=== PATIENT | male | born 1990 | race Caucasian/White ===

== ENCOUNTER 2018-07-21 19:44 | Emergency (ER) | payer OTHER ==
[2018-07-21] MEDS ORDERED: LIDOCAINE 5% (700 MG) TRANSDERMAL ADH..PATCH TP ONE (23:11)
[2018-07-21] MEDS ORDERED: ACETAMINOPHEN 325 MG TABLET PO ONE (23:11)
[2018-07-21] MEDS ORDERED: KETOROLAC TROMETHAMINE 60 MG/2 ML SDV IM ONE (23:11)
--- NOTE | 2018-07-21 23:15 | ER Document Report ---
ED General - General Chief Complaint: Back Pain Stated Complaint: BACK PAIN Time Seen by Provider: 07/21/18 22:20 Notes: Patient is a 28-year-old male without chronic medical problems who presents with approximately 8 hours of progressively worsening right low back pain. Patient states that this started gradually after he was lifting wood while working at [employer]. He states that he felt like he strained his back the pain got progressively worse thereafter. Does describe it as a dull, throbbing, constant pain worsened by movement or bending. He has not trying to improve the pain. Was seen in urgent care, referred to the emergency department for need of possible x-rays. Patient denies any bowel or bladder incontinence, urinary bleeding fever or IV drug use. No history of similar injuries in the past. TRAVEL OUTSIDE OF THE [place] IN LAST 30 DAYS: No Past Medical History - General Information source: Patient - Social History Smoking Status: Never Smoker Frequency of alcohol use: Occasional Drug Abuse: None Family History: Reviewed & Not Pertinent Patient has suicidal ideation: No Patient has homicidal ideation: No Renal/ Medical History: Denies: Hx Peritoneal Dialysis Review of Systems - Review of Systems Notes: Constitutional: Negative for fever. HENT: Negative for sore throat. Eyes: Negative for visual changes. Cardiovascular: Negative for chest pain. Respiratory: Negative for shortness of breath. Gastrointestinal: Negative for abdominal pain, vomiting or diarrhea. Genitourinary: Negative for dysuria. Musculoskeletal: Positive for right low back pain Skin: Negative for rash. Neurological: Negative for headaches, weakness or numbness. 10 point ROS negative except as marked above and in HPI. Physical Exam - Vital signs Vitals: Temp Pulse Resp BP Pulse Ox 98.8 F 94 16 116/67 96 07/21/18 20:18 07/21/18 20:18 07/21/18 20:18 07/21/18 20:18 07/21/18 20:18 Interpretation: Normal Notes: PHYSICAL EXAMINATION: GENERAL: Well-appearing, well-nourished and in no acute distress. HEAD: Atraumatic, normocephalic. EYES: Pupils equal round and reactive to light, extraocular movements intact, sclera anicteric, conjunctiva are normal. ENT: nares patent, oropharynx clear without exudates. Moist mucous membranes. NECK: Normal range of motion, supple without lymphadenopathy LUNGS: Breath sounds clear to auscultation bilaterally and equal. No wheezes rales or rhonchi. HEART: Regular rate and rhythm without murmurs ABDOMEN: Soft, nontender, normoactive bowel sounds. No guarding, no rebound. No masses appreciated. EXTREMITIES: Normal range of motion, no pitting or edema. No cyanosis. Back: No midline spinal tenderness, step-offs or deformities NEUROLOGICAL: 5 out of 5 strength both distally and proximally bilateral lower extremities. 2+ patellar reflexes bilaterally. No clonus. Sensation grossly intact in the bilateral lower extremities. Patient is able to ambulate without difficulty. PSYCH: Normal mood, normal affect. SKIN: Warm, Dry, normal turgor, no rashes or lesions noted. Course - Re-evaluation Re-evalutation: 07/21/18 23:11 Presentation of a well appearing patient complaining of acute back pain that started several hours after lifting heavy at work. No rapid progression of symptoms, systemic symptoms including fevers, chills, weight loss, history of recent bacterial infection, bilateral symptoms, numbness, weakness, difficulty walking, urinary retention or bowel incontinence, personal history of cancer, immunosuppression, diabetes, known AAA, or history of IV drug use. Exam is without point tenderness over vertebral bodies, pulsatile abdominal mass, and patient has symmetric and intact lower extremity strength, sensation, and reflexes without clonus. 2+ symmetric medial malleolar and dorsalis pedis pulses Based on history and physical, I have a very low suspicion of a concerning etiology of pain including epidural compression syndrome, spinal infection, transverse myelitis, malignancy, abdominal aortic aneurysm, renal colic, acute lower extremity claudication, neurogenic claudication, ankylosing spondylitis, or other intra-abdominal process. Due to absence of concerning risk factors in history and physical as well as absence of rapidly progressive, severe, or bilateral symptoms, will defer imaging at this point. Plan to manage conservatively with outpatient analgesia, analgesia, and physical therapy. - Acetaminophen 650 q 4 + ibuprofen 600 q 6 - Continue normal daily activities as tolerated by pain - Provide with standard musculoskeletal back pain exercise instructions - Instruct to follow up with primary care provider if symptoms not improving - Provide careful return precautions and concerning symptoms to watch for. - Vital Signs Vital signs: Temp Pulse Resp BP Pulse Ox 98.6 F 74 18 123/70 98 07/21/18 23:24 07/21/18 23:24 07/21/18 23:24 07/21/18 23:24 07/21/18 23:24 Discharge - Discharge Clinical Impression: Musculoskeletal strain Low back pain Qualifiers: Chronicity: acute Back pain laterality: right Sciatica presence: without sciati ca Qualified Code(s): M54.5 - Low back pain Condition: Good Disposition: HOME, SELF-CARE Additional Instructions: You have been seen in the Emergency Department (ED) today for back pain. Your workup and exam have not shown any acute abnormalities and you are likely suffering from muscle strain or possible problems with your discs, but there is no treatment that will fix your symptoms at this time. Please take the naproxen that has been prescribed as directed. You should also purchase a local lidocaine cream such as "aspercreme with lidocaine" and use per bottle instructions to the affected area. Apply heat to the area as often as you are able. Continue to keep active and avoid prolonged periods of bed rest. Please follow up with your doctor as soon as possible regarding today's ED visit and your back pain. Return to the ED for worsening back pain, fever, weakness or numbness of either leg, or if you develop either (1) an inability to urinate or have bowel movements, or (2) loss of your ability to control your bathroom functions (if you start having "accidents"), or if you develop other new symptoms that concern you.concern you. Prescriptions: Cyclobenzaprine HCl [Flexeril 10 mg Tablet] 10 mg PO QHS PRN #15 tablet PRN Reason: Naproxen 500 mg PO BID PRN #14 tablet PRN Reason: Forms: Special Work Note, Return to Work
[2018-07-21 23:25] VITALS: BP 123/70
== END 2018-07-21 23:25 | disposition home or self-care (01) ==
LOC: ER 19:44
DX: S39.012A Strain of muscle, fascia and tendon of lower back, initial encounter (principal); M54.9 Dorsalgia, unspecified; X50.9XXA Other and unspecified overexertion or strenuous movements or postures, initial encounter
CPT/HCPCS: 99283; 96372; J1885

== ENCOUNTER 2018-08-03 11:17 | Emergency (ER) | payer OTHER ==
--- NOTE | 2018-08-03 13:12 | ER Document Report ---
HPI - HPI Patient complains to provider of: back pain Time Seen by Provider: 08/03/18 12:33 Onset: Other - 07/21/18 Onset/Duration: Persistent Quality of pain: Achy, Throbbing Severity: Severe Pain Level: 5 Context: Patient presents to the emergency department with complaints of low back pain. Patient reports on July 21 he was working at [employer] when he lifted some plywood and hurt his back. He was evaluated in the emergency department and instructed to follow-up with his primary care provider. He reports he has [facility] He reports they sent him up for x-rays but they told him to come here for an MRI. He denies urinary or bowel incontinence or retention. He reports he feels numbness behind his knees now. Denies weakness. Denies further trauma. Complaints of fever vomiting diarrhea. He reports that urgent care gave him a work note for light duty. He reports that even working light duty his back hurts. He reports after standing/sitting in one hour he will hurt. Associated Symptoms: None Exacerbated by: Denies Relieved by: Denies Similar symptoms previously: Yes Recently seen / treated by doctor: Yes - REPRODUCTIVE Reproductive: DENIES: : Past Medical History - General Information source: Patient - Social History Smoking Status: Current Every Day Smoker Cigarette use (# per day): Yes Chew tobacco use (# tins/day): No Frequency of alcohol use: Occasional Drug Abuse: None Occupation: [employer] Family History: Reviewed & Not Pertinent Patient has suicidal ideation: No Patient has homicidal ideation: No - Medical History Medical History: Negative Renal/ Medical History: Denies: Hx Peritoneal Dialysis Surgical Hx: Negative Vertical Provider Document - CONSTITUTIONAL Agree With Documented VS: Yes Exam Limitations: No Limitations General Appearance: WD/WN, No Apparent Distress - INFECTION CONTROL TRAVEL OUTSIDE OF THE [place] IN LAST 30 DAYS: No - HEENT HEENT: Atraumatic, Normocephalic - NECK Neck: Supple - RESPIRATORY Respiratory: No Respiratory Distress - CARDIOVASCULAR Cardiovascular: Regular Rate - GI/ABDOMEN Gastrointestinal: Abdomen Non-Tender - BACK Back: Normal Inspection - No obvious deformity no erythema swelling or warmth. Good distal movement and sensation no vertebral tenderness. patient complains of low bilateral back pain reports numbness behind knees. Ambulates without problems stands up and toes rolled back on heels without problems no weakness noted. negative: CVA Tenderness-Right, CVA Tenderness-Left - MUSCULOSKELETAL/EXTREMETIES Musculoskeletal/Extremeties: MAEW, FROM, Non-Tender - NEURO Level of Consciousness: Awake, Alert, Appropriate Motor/Sensory: No Motor Deficit - DERM Integumentary: Warm, Dry Course - Re-evaluation Re-evalutation: 08/03/18 We discussed plan of care with patient. He is to continue taking his muscle relaxer and an anti-inflammatory such as naproxen. He has an appointment with his primary care provider August 10. He will remain off work until that time for further evaluation. He was instructed on the red flags of back pain such as fever or increased pain urinary or bowel incontinence to return to the emergency department. He verbalized understanding to all instructions. An MRI was not done at this time due to no further trauma same symptoms since July 21. No urinary or bowel incontinence or retention. Dictation of this chart was performed using voice recognition software; therefore, there may be some unintended grammatical errors. Discharge - Discharge Clinical Impression: Back pain Qualifiers: Back pain location: low back pain Chronicity: unspecified Back pain laterality: bilateral Sciatica presence: unspecified whether sciatica present Qualified Code(s): M54.5 - Low back pain Condition: Stable Disposition: HOME, SELF-CARE Instructions: Ice Packs ([facility]), Low Back Pain ([facility]), Warm Packs ([facility]) Additional Instructions: *You have been evaluated for back pain *Take your medication as prescribed *take ibuprofen as indicated *Rest/Ice- heat as directed *Follow up with your primary care provider august 10 as scheduled *Return to ED for worsening condition, changes, needs Forms: Return to Work
[2018-08-03 13:23] VITALS: BP 123/80
== END 2018-08-03 13:23 | disposition home or self-care (01) ==
LOC: ER 11:17
DX: M54.5 Low back pain (principal); X50.0XXA Overexertion from strenuous movement or load, initial encounter; Y92.512 Supermarket, store or market as the place of occurrence of the external cause; Y99.0 Civilian activity done for income or pay; R20.0 Anesthesia of skin; F17.210 Nicotine dependence, cigarettes, uncomplicated
CPT/HCPCS: 99283

== ENCOUNTER 2020-06-30 16:57 | Emergency (ER) | payer OTHER ==
[2020-06-30] MEDS ORDERED: NORMAL SALINE 1000 ML 1,000 ML IV ONE (18:09)
--- NOTE | 2020-06-30 18:13 | ER Document Report ---
ED Medical Screen (RME) - General Chief Complaint: Inability to Void Stated Complaint: VOMITING, SORE THROAT Time Seen by Provider: 06/30/20 18:03 TRAVEL OUTSIDE OF THE [place] IN LAST 30 DAYS: No - HPI Notes: 06/30/20 18:11 29-year-old male presents to the emergency room today for evaluation of nausea vomiting, dizziness that has become progressively worse with a sore throat since 6 days ago. He saw his PCP on they told him he had tonsillitis, he was prescribed an antibiotic and steroid. He states today he has been vomiting nonstop, his primary care doctor called him in [facility] which did not help him at all. He was advised to come to the emergency room. Reports he has not urinated since 11 PM last night, has not been eating, every time he drinks he vomits. Reports his last bowel movement was yesterday. Denies any fevers chills, chest pain shortness of breath, headache congestion. Patient still states he is having a sore throat, does not feel like the antibiotic is helping. Denies any fevers or chills. Patient does have a low-grade fever in triage I have greeted and performed a rapid initial assessment of this patient. A comprehensive ED assessment and evaluation of the patient, analysis of test results and completion of the medical decision making process will be conducted by additional ED providers. PHYSICAL EXAMINATION: GENERAL: Well-appearing, well-nourished and in no acute distress. HEAD: Atraumatic, normocephalic. ENT: Bilateral tonsils enlarged +2, with erythema and exudate EYES: Pupils equal round extraocular movements intact, conjunctiva are normal. NECK: Normal range of motion CV: s1, s2 regular LUNGS: No respiratory distress abd: slight RUQ abd pain, negative mathtew's sign. no cva tenderness bilaterally Musculoskeletal: Normal range of motion NEUROLOGICAL: Normal speech, normal gait. SKIN: Warm, Dry, normal turgor, no rashes or lesions noted. - Related Data Allergies/Adverse Reactions: No Known Allergies Allergy (Verified 06/30/20 17:58) Past Medical History Renal/ Medical History: Denies: Hx Peritoneal Dialysis Physical Exam - Vital signs Vitals: Temp Pulse Resp BP Pulse Ox 99.0 F 99 20 135/85 H 99 06/30/20 17:19 06/30/20 17:19 12/08/20 17:19 06/30/20 17:19 06/30/20 17:19 Course - Vital Signs Vital signs: Temp Pulse Resp BP Pulse Ox 99.0 F 99 20 135/85 H 99 06/30/20 17:19 06/30/20 17:19 06/30/20 17:19 06/30/20 17:19 06/30/20 17:19
--- NOTE | 2020-06-30 18:54 | RADIOLOGY REPORT (SQ) ---
EXAM DESCRIPTION: U/S ABDOMEN LIMITED W/O DOP IMAGES COMPLETED DATE/TIME: 06/30/2020 6:43 pm REASON FOR STUDY: vomiting and nausea COMPARISON: None. TECHNIQUE: Dynamic and static grayscale images acquired of the abdomen and recorded on PACS. Adano sacha selected color Doppler and spectral images recorded. LIMITATIONS: None. FINDINGS: PANCREAS: The pancreas is of normal echogenicity. The body and tail are obscured by over lying bowel gas. LIVER: The liver measures 17.2 cm in length, within the upper limits of normal for size. No masses. Echotexture normal. LIVER VASCULATURE: Normal directional flow of the main portal vein and hepatic veins. GALLBLADDER: No stones. The gallbladder wall measures 2.0 mm, normal wall thickness. No pericholecys tic fluid. ULTRASOUND-DETECTED SEBASTIAN'S SIGN: Negative. INTRAHEPATIC DUCTS AND COMMON DUCT: CBD measures 3.0 mm in diameter, normal. The intrahepatic ducts normal caliber. No filling defects. INFERIOR VENA CAVA: Normal flow. AORTA: No aneurysm. RIGHT KIDNEY: The right kidney measures 9.7 cm in length, normal size. Normal echogenicity. No solid or suspicious masses. No hydronephrosis. No calcifications. PERITONEAL AND RIGHT PLEURAL SPACE: No ascites or effusions. OTHER: No other significant findings. IMPRESSION: 1. The body and tail the pancreas are obscured by overlying bowel gas. 2. Examination is otherwise unremarkable sonographically. TECHNICAL DOCUMENTATION: JOB ID: [id number] 2010 [employer]- All Rights Reserved Reading location - IP/workstation name: [id number]
[2020-06-30 19:33] LABS: ABSOLUTE LYMPHOCYTES (AUTO) 2.7 10^3/uL (0.5-4.7); ABSOLUTE MONOCYTES (AUTO) 0.9 10^3/uL (0.1-1.4); ABSOLUTE NEUT (AUTO) 5.8 10^3/uL (1.7-8.2); BASOPHILS % (AUTO) 0.3 % (0-2); EOSINOPHILS % (AUTO) 0.4 % (0-6); HEMATOCRIT 44.8 % (37.9-51.0); HEMOGLOBIN 15.5 g/dL (13.5-17.0); LYMPHOCYTES % (AUTO) 28.7 % (13-45); MEAN CORPUSCULAR HGB CONC 34.6 g/dL (32.0-36.0); MEAN CORPUSCULAR VOLUME 90 fl (80-97); MONOCYTES % (AUTO) 9.2 % (3-13); PLATELET COUNT 243 10^3/uL (150-450); RED CELL DISTRIBUTION WIDTH 12.4 % (11.5-14.0); SEGMENTED NEUTROPHILS % (AUTO) 61.4 % (42-78); TOTAL CELLS COUNTED % (AUTO) 100 %; WHITE BLOOD COUNT 9.5 10^3/uL (4.0-10.5)
[2020-06-30 19:42] LABS: APPEARANCE,URINE SLIGHTLY-CLOUDY; BILIRUBIN,URINE NEGATIVE (NEGATIVE); COLOR,URINE AMBER; GLUCOSE, URINE NEGATIVE (NEGATIVE); KETONES,URINE 20 mg/dL (NEGATIVE); LEUKOCYTE ESTERASE,URINE NEGATIVE (NEGATIVE); NITRITE,URINE NEGATIVE (NEGATIVE); PROTEIN,URINE 30 mg/dL (NEGATIVE); URINE SPECIFIC GRAVITY 1.027; UROBILINOGEN,URINE NEGATIVE mg/dL (<2.0)
[2020-06-30 19:53] LABS: ALBUMIN 4.6 g/dL (3.5-5.0); ALKALINE PHOSPHATASE 67 U/L (38-126); ANION GAP 10 (5-19); ASPARTATE AMINO TRANSFERASE 22 U/L (17-59); BILIRUBIN,DIRECT 0.1 mg/dL (0.0-0.4); BILIRUBIN,TOTAL 0.6 mg/dL (0.2-1.3); BLOOD UREA NITROGEN 15 mg/dL (7-20); CALCIUM 9.9 mg/dL (8.4-10.2); CARBON DIOXIDE 28 mmol/L (22-30); CHLORIDE 102 mmol/L (98-107); GLUCOSE 101 mg/dL (75-110); POTASSIUM 4.3 mmol/L (3.6-5.0); TOTAL PROTEIN 7.8 g/dL (6.3-8.2)
--- NOTE | 2020-06-30 21:57 | ER Document Report ---
ED General - General Chief Complaint: Inability to Void Stated Complaint: VOMITING, SORE THROAT Time Seen by Provider: 06/30/20 18:03 Mode of Arrival: Ambulatory Information source: Patient Notes: [id number] male presents to the emergency department with a history of pain by his primary doctor for tonsillitis and given antibiotics and steroids. He has since then developed nausea, vomiting, dizziness and diffuse muscle aches and pains. He also notes that he has felt very weak and has not been having normal urine output. He was given IV fluids and medication for nausea and now feels improved. Patient was noted to have a low-grade temp at 99 point presented. He has been made a person of interest and a coronavirus swab was collected in the emergency department. He describes occasional coughing which is nonproductive. He denies shortness of breath. TRAVEL OUTSIDE OF THE [place] IN LAST 30 DAYS: No - Related Data Allergies/Adverse Reactions: No Known Allergies Allergy (Verified 06/30/20 17:58) Past Medical History - Social History Smoking Status: Current Every Day Smoker Family History: Reviewed & Not Pertinent Renal/ Medical History: Denies: Hx Peritoneal Dialysis Review of Systems - Review of Systems Notes: Constitutional: Negative for fever. HENT: See HPI. Eyes: Negative for visual changes. Cardiovascular: Negative for chest pain. Respiratory: Negative for shortness of breath. Gastrointestinal: See HPI Genitourinary: Negative for dysuria. Musculoskeletal: Negative for back pain. Skin: Negative for rash. Neurological: Negative for headaches, weakness or numbness. 10 point ROS negative except as marked above and in HPI. Physical Exam - Vital signs Vitals: Temp Pulse Resp BP Pulse Ox 99.0 F 99 20 135/85 H 99 06/30/20 17:19 06/30/20 17:19 06/30/20 17:19 06/30/20 17:19 06/30/20 17:19 - Notes Notes: PHYSICAL EXAMINATION: Physical Exam: General: Well-nourished well-developed 29-year-old man in no acute distress HEENT: NC/AT, pupils equal round and reactive to light, MM moist,nares clear, oropharynx clear, airway patent Neck: supple, no adenopathy, no masses. Good range of motion Lungs: clear, no wheezing, no rales no rhonchi CVS: Regular rate and rhythm no murmur gallop or rub Abdomen: Soft, active, nontender, no masses, no hepatosplenomegaly Ext: No edema, clubbing or cyanosis. Neuro: Alert and responsive, moving all 4 extremities on command, cranial nerves intact, no focal findings Skin: Intact no open lesions, no rash Course - Re-evaluation Re-evalutation: 06/30/20 21:55 Patient was given the Zofran and 1 liter normal saline and he was feels improved. - Vital Signs Vital signs: Temp Pulse Resp BP Pulse Ox 99.2 F 91 16 134/82 H 98 06/30/20 22:26 06/30/20 22:26 06/30/20 22:26 06/30/20 22:26 06/30/20 22:26 - Laboratory Results Result Diagrams: 06/30/20 19:06 06/30/20 19:06 Laboratory Results Interpreted: 06/30/20 19:06 Urine Protein 30 H Urine Ketones 20 H 06/30/20 21:56 I have reviewed laboratory data and used this information for the treatment decisions regarding the patient. Critical Laboratory Results Reviewed: No Critical Results Attending or Supervising Physician who Reviewed Labs: FLYNN LOGAN - Radiology Results Radiology Results Interpreted: 06/30/20 21:56 Chest x-ray Abdomen Ultrasound 06/30/20 18:10 IMPRESSION: 1. The body and tail the pancreas are obscured by overlying bowel gas. 2. Examination is otherwise unremarkable sonographically. Chest x-ray: No acute infiltrate seen. Critical Radiology Results Reviewed: No Critical Results Attending or Supervising Physician who Reviewed Radiology: FLYNN LOGAN Discharge - Discharge Clinical Impression: Suspected 2019 novel coronavirus infection Acute pharyngitis Qualifiers: Pharyngitis/tonsillitis etiology: other specified organisms Qualified Code(s): J02.8 - Acute pharyngitis due to other specified organisms Nausea and vomiting Qualifiers: Vomiting type: unspecified Vomiting Intractability: unspecified Qualified C ode(s): R11.2 - Nausea with vomiting, unspecified Condition: Good Disposition: HOME, SELF-CARE Instructions: COVID-19 Guidance for Persons Under Investigation, Antinausea Medication ([facility]) Additional Instructions: You were seen in the emergency department with nausea vomiting and generalized symptoms related to poor fluid intake. You were given IV fluids and medications to controlled vomiting. He will be discharged home with a prescription for Zofran and please continue the medications that you were prescribed by your primary care doctor. You were made a person of interest, a coronavirus test was collected. You will have to self quarantine until you get the results of the testing. If your symptoms are worsening with shortness of breath or high fever or inability to keep down your medications you may return to the emergency department for further evaluation and treatment HOME CARE INSTRUCTIONS & INFORMATION: Thank you for choosing us for your medical needs. We hope you're satisfied with the care you received. After you leave, you must properly care for your problem and, at the same time, observe its progress. Any condition can change. Some illnesses can change rapidly over hours or days. If your condition worsens, return to the Emergency Department or see your physician promptly. ABOUT YOUR X-RAYS AND EKG'S: If you had an EKG or X-rays taken, they have been read by the Emergency Physician. The X-rays and EKG's will also be read by a Radiologist or Super[employer] within 24 hours. If discrepancies are noted, you will be notified by telephone. Please be certain the ED has a correct telephone number & address where you can be reached. Also, realize that some fractures or abnormalities do not show up on initial X-rays. If your symptoms continue, see your physician. ABOUT YOUR LABORATORY TEST: If you had laboratory tests, the results have been reviewed by the Emergency Physician. Some test results (for example cultures) may not be available for several days. You will be contacted if any test result shows you need additional treatment. Please be certain the ED has a correct telephone number and address where you can be reached. ABOUT YOUR MEDICATIONS: You will receive instructions on how to take your medicine on the prescription label you receive. Additional information may be provided by the Pharmacy. If you have questions afterwards, call the ED for clarification or further instructions. Some prescribed medications may cause drowsiness. Do not perform tasks such as driving a car or operating machinery without consulting your Pharmacist. If you feel you need a refill of pain medication, your condition will need re-evaluation. Please do not call for a refill of any medication. ABOUT YOUR SIGNATURE: Signature of this document acknowledges to followin. Understanding that you received emergency treatment and that you may be released before al medical problems are known or treated. Please be certain the ED has a correct phone number & address where you can be reached. 2. Acknowledgement that you will arrange for follow-up care as recommended. 3. Authorization for the Emergency Physician to provide information to your follow-up Physician in order to maximize your care. AT ANY TIME, IF YOUR SYMPTOMS CHANGE SIGNIFICANTLY OR WORSEN OR YOU DEVELOP NEW SYMPTOMS, RETURN TO THE EMERGENCY DEPARTMENT IMMEDIATELY FOR RE-EVALUATION. OUR GOAL IS TO PROVIDE EXCELLENT MEDICAL CARE! WE HOPE THAT WE HAVE MET YOUR EXPECTATIONS DURING YOUR EMERGENCY DEPARTMENT VISIT AND THAT YOU FEEL YOU HAVE RECEIVED EXCELLENT CARE! Prescriptions: Ondansetron [Zofran Odt 4 mg Tablet] 1 - 2 tab PO Q4H PRN #15 tab.rapdis PRN Reason: For Nausea/Vomiting
[2020-06-30] MEDS ORDERED: ONDANSETRON ODT 4 MG TAB (6 TAB/ER DISP) PO PRN (22:01)
[2020-06-30] MEDS ORDERED: ONDANSETRON HCL INJ/PF 4 MG/2 ML SDV IV ONE (22:06)
[2020-06-30] MEDS ORDERED: ONDANSETRON 4 MG TAB.RAPDIS PO ONE (22:12)
[2020-06-30 22:27] VITALS: BP 134/82
--- NOTE | 2020-06-30 22:43 | RADIOLOGY REPORT (SQ) ---
EXAM DESCRIPTION: XR CHEST 1 VIEW COMPLETED DATE/TME: 06/30/2020 22:12 CLINICAL HISTORY: 29 years, Male, Cough EXAM DESCRIPTION: CHEST SINGLE VIEW CLINICAL HISTORY: Cough COMPARISON: None. FINDINGS: Single view of the chest is submitted. Cardiac silhouette is normal. No focal parenchymal or pleural disease. There is no significant pulmonary vascular engorgement. IMPRESSION: No evidence of acute cardiopulmonary disease.
== END 2020-06-30 22:28 | disposition home or self-care (01) ==
LOC: ER 16:57
DX: J02.8 Acute pharyngitis due to other specified organisms (principal); R11.2 Nausea with vomiting, unspecified; F17.200 Nicotine dependence, unspecified, uncomplicated; Z20.828 Contact with and (suspected) exposure to other viral communicable diseases
CPT/HCPCS: 99285; 96361; 96374; 36415; 87070; 87880; 83690; 85025; 87635; 86308; 80053; 81001; 71045; 76705; S0119; J7030; C9803